=== PATIENT | male | born 1990 | race Hispanic/Latino ===

== ENCOUNTER 2022-11-13 13:23 | Emergency (ER) | payer OTHER ==
[~2022-11-13] VITALS: Ht 175.3 cm; Wt 82.9 kg
== END 2022-11-13 14:45 | disposition home or self-care (01) ==
LOC: ED 13:23
DX: T15.01XA Foreign body in cornea, right eye, initial encounter (principal); X58.XXXA Exposure to other specified factors, initial encounter
CPT/HCPCS: 65222; 99283-25